=== PATIENT | female | born 1950 | race Two or more races ===

== ENCOUNTER 2020-01-24 11:23 | Outpatient (CLI) | payer OTHER | END 2020-01-24 11:45 | disposition home or self-care (01) | LOC: NUCLEAR 11:23 | DX: M81.0 Age-related osteoporosis without current pathological fracture (principal); Z13.820 Encounter for screening for osteoporosis ==

== ENCOUNTER 2020-02-02 07:24 | Outpatient (CLI) | payer OTHER | END 2020-02-02 09:01 | disposition home or self-care (01) | LOC: NUCLEAR 07:24 | DX: I50.9 Heart failure, unspecified (principal); I10 Essential (primary) hypertension; I25.10 Atherosclerotic heart disease of native coronary artery without angina pectoris | CPT/HCPCS: J0153; A9500; 93017; 78452 ==